=== PATIENT | female | born 1980 | race Caucasian/White ===

== ENCOUNTER → 2021-03-10 | Emergency (ER) | payer MEDICAID ==
[~2021-03-10] VITALS: Ht 167.6 cm; Wt 121.5 kg
[~2021-03-10] MED LIST: HYDR-3965 PO; HYDROcodone/acetaminophen 5mg/325mg tablet PO ONE; ONDA4TAB6 PO; iohexol 300mg/ml 100ml inj. ONE
[2021-03-10 08:15] LABS: CLARITY,URINE CLOUDY (Clear); COLOR,URINE YELLOW (Yellow); GLUCOSE, URINE NEGATIVE (Neg); KETONES,URINE NEGATIVE (Neg); LEUKOCYTE ESTERASE ,URINE NEGATIVE (Neg); NITRITES, URINE NEGATIVE (Neg); OCCULT BLOOD,URINE NEGATIVE (Neg); PH,URINE 7.5 (4.8-8.0); PROTEIN,URINE NEGATIVE (Neg); URINE HCG NEGATIVE (NEG); UROBILINOGEN,URINE 0.2 E.U/dL (0.2-1.0)
[2021-03-10 08:18] LABS: UA COLLECTION TYPE CLN CATCH MIDSTREAM
[2021-03-10 08:20] LABS: SQUAMOUS EPITHELIAL CELL,UR MANY /LPF (FEW)
[2021-03-10 08:20] LABS: BASOPHILS % (AUTO) 0.6 % (0-1); EOSINOPHILS # (AUTO) 0.1 X10'3 (0-0.9); EOSINOPHILS % (AUTO) 1.3 % (0-6); HEMATOCRIT 39.2 % (35.0-45.0); HEMOGLOBIN 13.1 g/dl (12.0-16.0); LYMPHOCYTES # (AUTO) 1.8 X10'3 (1.1-4.8); LYMPHOCYTES % (AUTO) 26.1 % (21-51); MEAN CORPUSCULAR HEMOGLOBIN 28.5 PG (27.0-31.0); MEAN CORPUSCULAR HGB CONC 33.3 g/dL (33.0-36.5); MEAN CORPUSCULAR VOLUME 85.5 FL (78-98); MEAN PLATELET VOLUME 9.2 FL (7.4-10.4); MONOCYTES # (AUTO) 0.5 X10'3 (0-0.9); MONOCYTES % (AUTO) 7.3 % (2-12); NEUTROPHILS # (AUTO) 4.4 X10'3 (1.8-7.7); NEUTROPHILS % (AUTO) 64.7 % (42-75); PLATELET COUNT 203 X10'3 (140-440); RED BLOOD COUNT 4.58 X10'6 (4.20-5.60); RED CELL DISTRIBUTION WIDTH 14.1 % (11.5-14.5); WHITE BLOOD COUNT 6.7 X10'3 (4.5-11.0)
[2021-03-10 08:21] LABS: BACTERIA,URINE 2+ /HPF (Neg)
[2021-03-10 08:25] LABS: AMORPHOUS PHOSPHATES 2+
[2021-03-10 08:26] LABS: RBC,URINE 0-2 /HPF (0-2); TRANSITIONAL EPI CELLS,URINE FEW /HPF; WBC,URINE 0-4 /HPF (0-4)
[2021-03-10 08:34] LABS: ALANINE AMINOTRANSFERASE 25 U/L (12-78); ALBUMIN 3.4 G/DL (3.4-5.0); ALBUMIN/GLOBULIN RATIO 0.9 (1.1-1.5); ALKALINE PHOSPHATASE 64 IU/L (46-116); ANION GAP 9 (8-16); ASPARTATE AMINO TRANSFERASE 16 U/L (10-37); BILIRUBIN,TOTAL 0.4 MG/DL (0.1-1.0); BLOOD UREA NITROGEN 8 MG/DL (7-18); BUN/CREATININE RATIO 13.1 (6.6-38.0); CALCIUM 8.1 MG/DL (8.5-10.1); CHLORIDE 108 MMOL/L (99-107); CREATININE 0.61 MG/DL (0.40-0.90); GLUCOSE 103 MG/DL (70-104); LIPASE 80 U/L (73-393); POTASSIUM 3.9 MMOL/L (3.5-5.1); SODIUM 141 MMOL/L (135-145); TOTAL CARBON DIOXIDE 23.6 MMOL/L (24-32); TOTAL PROTEIN 7.1 G/DL (6.4-8.2); eGFR > 90 ML/MIN
[2021-03-10 10:01] LABS: PARTIAL THROMBOPLASTIN TIME 43 SECONDS (22-32)
--- NOTE | 2021-03-10 11:41 | NUR ---
us at bedside
[2021-03-10 12:12] VITALS: BP 118/65
== END | disposition home or self-care (01) ==
LOC: ER 07:41
DX: R10.31 Right lower quadrant pain (principal); R11.10 Vomiting, unspecified; R30.0 Dysuria; J45.909 Unspecified asthma, uncomplicated; Z87.81 Personal history of (healed) traumatic fracture; Z88.0 Allergy status to penicillin; Z79.899 Other long term (current) drug therapy; Z90.49 Acquired absence of other specified parts of digestive tract
CPT/HCPCS: 36415; 74176; 76830; 76856; 80053; 81001; 81025; 83690; 85025; 85610; 85730; 93976; 99285; Q9967

== ENCOUNTER 2021-03-11 16:14 | Emergency (ER) | payer MEDICAID ==
[~2021-03-11] VITALS: Ht 168.9 cm; Wt 121.7 kg
[~2021-03-11 16:14] MED LIST changes: -HYDROcodone/acetaminophen 5mg/325mg tablet PO ONE; -ONDA4TAB6 PO; -iohexol 300mg/ml 100ml inj. ONE
[2021-03-11 16:44] LABS: BASOPHILS % (AUTO) 0.4 % (0-1); EOSINOPHILS # (AUTO) 0.1 X10'3 (0-0.9); EOSINOPHILS % (AUTO) 1.2 % (0-6); HEMATOCRIT 38.4 % (35.0-45.0); HEMOGLOBIN 12.8 g/dl (12.0-16.0); LYMPHOCYTES # (AUTO) 1.9 X10'3 (1.1-4.8); MEAN CORPUSCULAR HEMOGLOBIN 28.8 PG (27.0-31.0); MEAN CORPUSCULAR HGB CONC 33.3 g/dL (33.0-36.5); MEAN CORPUSCULAR VOLUME 86.6 FL (78-98); MEAN PLATELET VOLUME 9.4 FL (7.4-10.4); MONOCYTES # (AUTO) 0.5 X10'3 (0-0.9); MONOCYTES % (AUTO) 6.8 % (2-12); NEUTROPHILS # (AUTO) 4.8 X10'3 (1.8-7.7); NEUTROPHILS % (AUTO) 65.6 % (42-75); PLATELET COUNT 209 X10'3 (140-440); RED BLOOD COUNT 4.44 X10'6 (4.20-5.60); RED CELL DISTRIBUTION WIDTH 13.8 % (11.5-14.5); WHITE BLOOD COUNT 7.3 X10'3 (4.5-11.0)
[2021-03-11 17:01] LABS: ALANINE AMINOTRANSFERASE 24 U/L (12-78); ALBUMIN 3.6 G/DL (3.4-5.0); ALBUMIN/GLOBULIN RATIO 0.9 (1.1-1.5); ALKALINE PHOSPHATASE 67 IU/L (46-116); ANION GAP 8 (8-16); ASPARTATE AMINO TRANSFERASE 14 U/L (10-37); BILIRUBIN,TOTAL 0.5 MG/DL (0.1-1.0); BLOOD UREA NITROGEN 10 MG/DL (7-18); BUN/CREATININE RATIO 14.5 (6.6-38.0); CALCIUM 8.4 MG/DL (8.5-10.1); CHLORIDE 108 MMOL/L (99-107); CREATININE 0.69 MG/DL (0.40-0.90); GLUCOSE 94 MG/DL (70-104); LIPASE 71 U/L (73-393); POTASSIUM 3.7 MMOL/L (3.5-5.1); SODIUM 141 MMOL/L (135-145); TOTAL CARBON DIOXIDE 24.8 MMOL/L (24-32); TOTAL PROTEIN 7.6 G/DL (6.4-8.2); eGFR > 90 ML/MIN
[2021-03-11] MEDS ORDERED: HYDROcodone/acetaminophen 5mg/325mg tablet PO ONE (22:20)
[2021-03-11] MEDS ORDERED: ondansetron 4mg rapidly disintigrating tab PO ONE (22:20)
[2021-03-11] MEDS ORDERED: ketorolac trometh inj. 60 MG/2 ML VIAL IM ONE (22:20)
[2021-03-11] MEDS ORDERED: dicyclomine 10 MG capsule PO ONE (22:25)
[2021-03-11] MEDS ORDERED: proCHLORperazine 10 MG/2 ml inj IM ONE (23:50)
[2021-03-12] MEDS ORDERED: ONDA4TAB6 PO (00:30)
[2021-03-12] MEDS ORDERED: HYDR-3965 PO (00:30)
[2021-03-12 01:06] VITALS: BP 113/60
== END 2021-03-12 01:07 | disposition home or self-care (01) ==
LOC: ER 16:16
DX: R11.2 Nausea with vomiting, unspecified (principal); R10.31 Right lower quadrant pain; J45.909 Unspecified asthma, uncomplicated; Z88.0 Allergy status to penicillin; Z79.899 Other long term (current) drug therapy
CPT/HCPCS: 36415; 74018; 80053; 83690; 85025; 96372; 99284; J0780; J1885

== ENCOUNTER 2021-03-25 19:21 | Emergency (ER) | payer MEDICAID ==
[~2021-03-25] VITALS: Ht 170.2 cm; Wt 130.0 kg
[~2021-03-25 19:21] MED LIST changes: +ONDA4TAB6 PO
[2021-03-25 19:54] LABS: URINE HCG NEGATIVE (NEG)
[2021-03-25] MEDS ORDERED: iohexol 300mg/ml 100ml inj. ONE (20:05)
[2021-03-25 20:11] LABS: BASOPHILS % (AUTO) 0.4 % (0-1); EOSINOPHILS # (AUTO) 0.1 X10'3 (0-0.9); EOSINOPHILS % (AUTO) 1.7 % (0-6); HEMATOCRIT 38.2 % (35.0-45.0); HEMOGLOBIN 12.3 g/dl (12.0-16.0); LYMPHOCYTES # (AUTO) 2.3 X10'3 (1.1-4.8); LYMPHOCYTES % (AUTO) 32.1 % (21-51); MEAN CORPUSCULAR HEMOGLOBIN 28.2 PG (27.0-31.0); MEAN CORPUSCULAR HGB CONC 32.2 g/dL (33.0-36.5); MEAN CORPUSCULAR VOLUME 87.5 FL (78-98); MEAN PLATELET VOLUME 9.7 FL (7.4-10.4); MONOCYTES # (AUTO) 0.6 X10'3 (0-0.9); MONOCYTES % (AUTO) 7.9 % (2-12); NEUTROPHILS # (AUTO) 4.1 X10'3 (1.8-7.7); NEUTROPHILS % (AUTO) 57.9 % (42-75); PLATELET COUNT 196 X10'3 (140-440); RED BLOOD COUNT 4.36 X10'6 (4.20-5.60); WHITE BLOOD COUNT 7.1 X10'3 (4.5-11.0)
[2021-03-25 20:19] LABS: ALANINE AMINOTRANSFERASE 28 U/L (12-78); ALBUMIN 3.5 G/DL (3.4-5.0); ALKALINE PHOSPHATASE 60 IU/L (46-116); ANION GAP 12 (8-16); ASPARTATE AMINO TRANSFERASE 20 U/L (10-37); BILIRUBIN,TOTAL 0.4 MG/DL (0.1-1.0); BLOOD UREA NITROGEN 9 MG/DL (7-18); BUN/CREATININE RATIO 12.3 (6.6-38.0); CALCIUM 8.4 MG/DL (8.5-10.1); CHLORIDE 108 MMOL/L (99-107); CREATININE 0.73 MG/DL (0.40-0.90); GLUCOSE 117 MG/DL (70-104); LIPASE 450 U/L (73-393); POTASSIUM 3.4 MMOL/L (3.5-5.1); SODIUM 143 MMOL/L (135-145); TOTAL CARBON DIOXIDE 22.9 MMOL/L (24-32); TOTAL PROTEIN 7.1 G/DL (6.4-8.2); eGFR 89 ML/MIN
[2021-03-25 20:36] LABS: CLARITY,URINE SLIGHTLY CLOUDY (Clear); COLOR,URINE YELLOW (Yellow); GLUCOSE, URINE NEGATIVE (Neg); KETONES,URINE NEGATIVE (Neg); LEUKOCYTE ESTERASE ,URINE NEGATIVE (Neg); NITRITES, URINE NEGATIVE (Neg); OCCULT BLOOD,URINE TRACE-INTACT (Neg); PROTEIN,URINE NEGATIVE (Neg); UROBILINOGEN,URINE 0.2 E.U/dL (0.2-1.0)
[2021-03-25 20:47] LABS: UA COLLECTION TYPE CLN CATCH MIDSTREAM
[2021-03-25 20:50] LABS: BACTERIA,URINE 2+ /HPF (Neg); SQUAMOUS EPITHELIAL CELL,UR MODERATE /LPF (FEW); WBC,URINE 0-4 /HPF (0-4)
[2021-03-25] MEDS ORDERED: normal saline 1000ml 1,000 ML IV ONE (22:25)
[2021-03-25] MEDS ORDERED: ondansetron/PF 4mg/2ml inj IV ONE (22:25)
[2021-03-25] MEDS ORDERED: oxyCODONE/APAP 5-325mg tablet PO ONE (22:25)
[2021-03-26] MEDS ORDERED: ondansetron/PF 4mg/2ml inj IV ONE (00:20)
[2021-03-26] MEDS ORDERED: oxyCODONE/APAP 5-325mg tablet PO ONE (00:20)
[2021-03-26] MEDS ORDERED: OXYC-145 PO (00:40)
[2021-03-26] MEDS ORDERED: ONDA4TAB6 PO (00:40)
[2021-03-26 01:21] VITALS: BP 115/68
== END 2021-03-26 01:25 | disposition home or self-care (01) ==
LOC: ER 19:22
DX: K85.90 Acute pancreatitis without necrosis or infection, unspecified (principal); R10.84 Generalized abdominal pain; R11.10 Vomiting, unspecified; J45.909 Unspecified asthma, uncomplicated; Z88.0 Allergy status to penicillin; Z79.899 Other long term (current) drug therapy
CPT/HCPCS: 36415; 74177; 76700; 80053; 81001; 81025; 83690; 85025; 87088; 96361; 96374; 96376; 99285; J2405; J7030; Q9967

== ENCOUNTER 2021-08-31 17:33 | Emergency (ER) | payer MEDICAID ==
[~2021-08-31] VITALS: Ht 167.6 cm; Wt 125.0 kg
[~2021-08-31 17:33] MED LIST changes: -HYDR-3965 PO; +OXYC-145 PO
[2021-08-31 18:26] VITALS: BP 151/85
[2021-08-31] MEDS ORDERED: dexamethasone 4mg tablet PO ONE (19:35)
[2021-08-31] MEDS ORDERED: DEXAMETHASONE 6 MG TABLET PO ONE (19:40)
[2021-08-31] MEDS ORDERED: BUDE10.27 INH (19:52)
[2021-08-31] MEDS ORDERED: DEXA6TAB6 PO (19:52)
== END 2021-08-31 20:21 | disposition home or self-care (01) ==
LOC: ER 17:34
DX: U07.1 COVID-19 (principal); H92.09 Otalgia, unspecified ear; M54.9 Dorsalgia, unspecified; G89.29 Other chronic pain; J44.9 Chronic obstructive pulmonary disease, unspecified; Z88.0 Allergy status to penicillin
CPT/HCPCS: 36415; 85610; 87635; 99283; C9803; J8540

== ENCOUNTER 2023-06-26 17:09 | Emergency (ER) | payer MEDICAID ==
[~2023-06-26] VITALS: Ht 170.2 cm; Wt 113.6 kg
[~2023-06-26 17:09] MED LIST changes: +BUDE10.27 INH; +DEXA6TAB6 PO
[2023-06-26 17:19] VITALS: BP 128/90; PULSE 99; RESP 20; TEMP 97.9; O2SAT 97
[2023-06-26 17:56] LABS: BASOPHILS # (AUTO) 0.1 X10'3 (0-0.2); BASOPHILS % (AUTO) 0.4 % (0-1); EOSINOPHILS # (AUTO) 0.1 X10'3 (0-0.9); EOSINOPHILS % (AUTO) 0.5 % (0-6); HEMATOCRIT 39.9 % (35.0-45.0); HEMOGLOBIN 13.1 g/dl (12.0-16.0); LYMPHOCYTES % (AUTO) 7.3 % (21-51); MEAN CORPUSCULAR HEMOGLOBIN 28.9 PG (27.0-31.0); MEAN CORPUSCULAR HGB CONC 32.9 g/dL (33.0-36.5); MEAN CORPUSCULAR VOLUME 87.8 FL (78-98); MEAN PLATELET VOLUME 9.3 FL (7.4-10.4); MONOCYTES # (AUTO) 0.8 X10'3 (0-0.9); MONOCYTES % (AUTO) 5.5 % (2-12); NEUTROPHILS # (AUTO) 12.4 X10'3 (1.8-7.7); NEUTROPHILS % (AUTO) 86.3 % (42-75); PLATELET COUNT 221 X10'3 (140-440); RED BLOOD COUNT 4.55 X10'6 (4.20-5.60); RED CELL DISTRIBUTION WIDTH 14.5 % (11.5-14.5); WHITE BLOOD COUNT 14.3 X10'3 (4.5-11.0)
[2023-06-26 17:59] LABS: APTT 25 SECONDS (22-32)
[2023-06-26 18:03] LABS: ALANINE AMINOTRANSFERASE 21 U/L (12-78); ALBUMIN 3.7 G/DL (3.4-5.0); ALBUMIN/GLOBULIN RATIO 0.9 (1.1-1.5); ALKALINE PHOSPHATASE 58 IU/L (46-116); ANION GAP 11 (8-16); ASPARTATE AMINO TRANSFERASE 18 U/L (10-37); BILIRUBIN,TOTAL 0.5 MG/DL (0.1-1.0); BLOOD UREA NITROGEN 13 MG/DL (7-18); BUN/CREATININE RATIO 15.3 (10.0-20.0); CALCIUM 9.1 MG/DL (8.5-10.1); CHLORIDE 104 MMOL/L (99-107); CREATININE 0.85 MG/DL (0.40-0.90); GLUCOSE 117 MG/DL (70-104); LIPASE 47 U/L (16-77); POTASSIUM 3.3 MMOL/L (3.5-5.1); SODIUM 137 MMOL/L (135-145); TOTAL CARBON DIOXIDE 22.2 MMOL/L (24-32); TOTAL PROTEIN 7.8 G/DL (6.4-8.2); eCRCL 84 ML/MIN; eGFR 73 ML/MIN
[2023-06-26] MEDS ORDERED: acetaminophen 1,000mg/100ml IV 100 ML IV STA (18:59)
[2023-06-26] MEDS ORDERED: ondansetron/PF 4mg/2ml inj IV ONE (19:00)
[2023-06-26] MEDS ORDERED: iohexol 300mg/ml 100ml inj. ONE (19:08)
[2023-06-26 21:02] LABS: BILIRUBIN,URINE NEGATIVE (Neg); CLARITY,URINE SLIGHTLY CLOUDY (Clear); COLOR,URINE YELLOW (Yellow); GLUCOSE, URINE NEGATIVE (Neg); KETONES,URINE NEGATIVE (Neg); LEUKOCYTE ESTERASE ,URINE NEGATIVE (Neg); NITRITES, URINE NEGATIVE (Neg); OCCULT BLOOD,URINE NEGATIVE (Neg); PH,URINE 5.5 (4.8-8.0); PROTEIN,URINE TRACE mg/dl (Neg); UA COLLECTION TYPE VOIDED; UROBILINOGEN,URINE 0.2 E.U/dL (0.2-1.0)
[2023-06-26 21:12] LABS: BACTERIA,URINE FEW /HPF (Neg); MUCUS STRANDS FEW /LPF (Neg); RBC,URINE NONE SEEN /HPF (0-2); SQUAMOUS EPITHELIAL CELL,UR MANY /LPF (FEW); WBC,URINE 0-4 /HPF (0-4)
[2023-06-26] MEDS ORDERED: ONDA4TAB12 PO (21:14)
== END 2023-06-26 21:39 | disposition home or self-care (01) ==
LOC: ER 17:09
DX: R19.7 Diarrhea, unspecified (principal); R10.32 Left lower quadrant pain; J44.9 Chronic obstructive pulmonary disease, unspecified; Z88.0 Allergy status to penicillin; Z79.899 Other long term (current) drug therapy; Z79.01 Long term (current) use of anticoagulants
CPT/HCPCS: 36415; 74177; 80053; 81001; 83690; 85025; 85730; 96374; 96375; 99285; J0131; J2405; J3490; Q9967

== ENCOUNTER 2023-12-11 05:11 | Emergency (ER) | payer MEDICAID ==
[~2023-12-11 05:11] MED LIST changes: +ONDA4TAB12 PO
== END 2023-12-11 06:17 | disposition left against medical advice (07) ==
LOC: ER 05:11
DX: R10.9 Unspecified abdominal pain (principal); Z53.21 Procedure and treatment not carried out due to patient leaving prior to being seen by health care provider

== ENCOUNTER 2025-02-18 16:58 | Emergency (ER) | payer MEDICAID, OTHER ==
[~2025-02-18] VITALS: Ht 170.2 cm; Wt 126.4 kg
[~2025-02-18 16:58] MED LIST changes: +ONDA-243 PO; -ONDA4TAB12 PO
[2025-02-18 16:59] VITALS: RESP 16
--- NOTE | 2025-02-18 17:16 | Physician Documentation ---
History of Present Illness ~ Chief Complaint: Urinary Symptoms Stated Complaint: "I THINK I MIGHT HAVE A UTI AND BACK PAIN" Time Seen by MD: 17:17 Primary Medical Doctor: [facility] HPI 44-year-old female who presents to the emergency department reporting that she is having pressure when urinating and also back pain. She does also have vaginal irritation and occasional issues with malodorous discharge. Recurrent issues with BV. Does admit to having two partners right now, would like STI testing. No chills or fever, chest pain, nausea, vomiting. Medication Reconciliation Allergies: Coded Allergies: Penicillins (Verified Allergy, Unknown, 06/26/23) Scheduled Budesonide/Formoterol Fumarate (Budesonide-Formoterol 80-4.5), 2 PUFFS INH BID Dexamethasone (Decadron), 1 TAB PO DAILY Ondansetron Hcl (Zofran), 1-2 TAB PO Q6H Scheduled PRN ONDANSETRON ODT 4mg tablet (Ondansetron Odt), 1 TAB PO Q6H PRN PRN for nausea/vomiting Ondansetron Hcl (Zofran), 1 TAB PO Q6H PRN for nausea/vomiting Oxycodone HCl/Acetaminophen (Percocet 5-325 mg Tablet), 1-2 TABLET PO Q4H PRN for severe pain (7-10) Past Medical History Past Medical History: Asthma, COPD Past Surgical History: noncontributory Alcohol Use: Rarely Lives with: Family Lives In: Home Occupation: employed Review of Systems ROS As stated above in the HPI, otherwise all systems are reviewed and negative. Physical Exam Vital Signs: Temperature: 97.7, Source: Temporal, Heart Rate: 90, Respiratory Rate: 16, BP: 148/85, Pulse Oximetry: 96, Weight: 126.360 Oxygen Flow Rate: 0 Physical Exam General: Alert, no apparent distress. Neck: Full range of motion. Respiratory: Lungs clear, no respiratory distress. Chest: No accessory muscle use. Cardiovascular: Regular rate and rhythm, no murmurs. Gastrointestinal: Soft, nontender, nondistended. Bowels sounds present. Pelvic: Neurologic: Oriented x4. Psychiatric: Normal mood and affect. Skin: Normal color, warm and dry. No edema, no ecchymosis. Procedures Procedures Pelvic exam: normal female external genitalia. White discharge in vault but no lesions. Progress Results/Orders Results/Orders Orders - ZAINA JALLOH [employer] Chlam/Gc Amp Ur (02/18/25 17:07) Pelvic Set Up (02/18/25 17:07) Straight Cath For Urine Sample (02/18/25 18:33) Completed Orders - ZAINA JALLOH [employer] Rene Prep (Fungal Smear) (02/18/25 17:07) Syphilis Screen Poc (02/18/25 17:07) Hcg, Ur Ql (02/18/25 17:10) Ua W/Microscopic, Cult If Ind (02/18/25 17:03) Ua W/Microscopic, Cult If Ind (02/18/25 19:14) Vital Signs 02/18/25 02/18/25 02/18/25 16:59 18:35 18:38 Temp 97.7 Pulse 90 76 Resp 16 B/P (MAP) 148/85 130/65 (86) Pulse Ox 96 100 O2 Flow Rate 0 Laboratory Tests Test 02/18/25 17:03 02/18/25 17:32 02/18/25 19:14 Urine Specimen Description Cln catch midstream Non-specified Urine Color Yellow Yellow Urine Clarity Slightly cloudy Clear Urine pH 6.0 6.0 Urine Specific [place] >1.030 >=1.030 Urine Protein Negative Negative Urine Glucose (UA) Negative Negative Urine Ketones Negative Negative Urine Occult Blood Negative Small Urine Nitrite Negative Negative Urine Bilirubin Negative Negative Urine Urobilinogen 0.2 0.2 Urine Leukocyte Esterase Trace H Negative Urine RBC None seen 20-50 Urine WBC 20-30 H 0-4 Urine Squamous Epithelial Cells Many Moderate Urine Bacteria 2+ 1+ Urine Culture Indicated Rejected for culture Not ind Volume Urine Centrifuged 10 ml 10 ml Urine HCG, Qualitative Negative Urine Comment Syphilis Serology Negative Urine Mucus Moderate Microbiology Date/Time Source Procedure Growth Status 02/18/25 19:15 Vaginal RENE Preparation - Final Complete Medical Decision Making Additional Comment Well appearing 44 yr old female presents due to dysuria and vaginal irritation a nd is requesting STI testing. Normal pelvic exam. Wet prep and GC/Chlamydia pending at time of discharge. NEG syphilis, NEG UA for infection. Patient to followup with PCP and obtain results from them. Is to return if worse. Departure Time of Disposition: 19:59 Disposition: 01 HOME / SELF CARE / HOMELESS Impression: Primary Impression: Encounter for screening examination for sexually transmitted disease Additional Impression: Vaginal irritation Discharge Instructions: Preventing Sexually Transmitted Infections, Adult, Dysuria Additional Instructions: Negative syphilis test. Your gonorrhea and chlamydia testing and wet prep (test for BV and yeast) are pending and will take a few days. These results can be obtained through your primary care. Continue your current treatment for lichen planus. No evidence of UTI. Please followup with primary care, return if worse. Referrals: NO PRIMARY CARE PROVIDER (PCP) Education Educated: Patient Educated regarding: diagnosis, treatment, prognosis Signature Scribe Signature: x Attestation: The note accurately reflects work and decisions made by me.Zaina Rock NP 02/18/25 17:16 ZAINA JALLOH NP Feb 18, 2025 17:16
[2025-02-18 17:29] LABS: URINE HCG NEGATIVE (NEG)
[2025-02-18 17:31] LABS: UA COLLECTION TYPE CLN CATCH MIDSTREAM
[2025-02-18 17:32] LABS: NITRITES, URINE NEGATIVE (Neg); OCCULT BLOOD,URINE NEGATIVE (Neg)
[2025-02-18 17:33] LABS: LEUKOCYTE ESTERASE ,URINE TRACE (Neg); SQUAMOUS EPITHELIAL CELL,UR MANY /LPF (FEW)
[2025-02-18 18:38] VITALS: BP 130/65; PULSE 76; O2SAT 100
[2025-02-18 18:55] LABS: SYPHILIS SCREENING TEST POC NEGATIVE (Negative)
[2025-02-18 19:34] LABS: LEUKOCYTE ESTERASE ,URINE NEGATIVE (Neg); NITRITES, URINE NEGATIVE (Neg); OCCULT BLOOD,URINE SMALL (Neg)
[2025-02-18 19:45] LABS: UA COLLECTION TYPE NON-SPECIFIED
[2025-02-18 19:50] LABS: MUCUS STRANDS MODERATE /LPF (Neg); SQUAMOUS EPITHELIAL CELL,UR MODERATE /LPF (FEW)
[2025-02-18 20:26] VITALS: TEMP 97.7
== END 2025-02-18 20:28 | disposition home or self-care (01) ==
LOC: ER 16:59
DX: Z11.3 Encounter for screening for infections with a predominantly sexual mode of transmission (principal); N89.8 Other specified noninflammatory disorders of vagina; J44.9 Chronic obstructive pulmonary disease, unspecified; Z88.0 Allergy status to penicillin; Z79.899 Other long term (current) drug therapy
CPT/HCPCS: 36415; 81001; 81025; 87210; 87491; 87591; 99284; Q0112; C1758